=== PATIENT | male | born 1985 | race Caucasian/White ===

== ENCOUNTER 2017-03-23 08:10 | Emergency (ER) | payer BC ==
[~2017-03-23] VITALS: Ht 182.9 cm; Wt 87.6 kg
[~2017-03-23 08:10] MED LIST: NO ROUTINE MEDS
--- OUTSIDE RECORDS SUMMARY | 2017-03-23 08:14 | XMS REPORT | Continuity of Care Document ---
Author Author [facility] Organization [facility] Address Unknown Phone Unavailable Support Name Relationship Address Phone JESUSITA BUCK DO Caregiver [address] [place] [address] [place] [address] Unavailable VINCENT JOSEPH Next Of Kin [address] [place] [phone] Insurance Providers Guarantor YvetterobertoJoshua Mcdonald Address [address] [place] [address] Email DENIED/NO TO PORTAL Payer [employer] Other Policy Number [id number] Subscriber's Name Joshua Tarango Relationship 18 Self Group Number [id number] Chief Complaint and Reason for Visit Chief Complaint Weakness/Neuro Symptoms Reason for Visit Weakness Problems Past Problems Medical Problem Onset Date Weakness Unknown Medications Current Home Medications Medication Dose Units Route Directions Days Qty Instructions Start Date No Routine Meds 09/15/16 Social History Social History Problem Response Recorded Date/Time Onset Date Status Hx Substance Use No 09/15/2016 10:32am Not Applicable Not Applicable Hx Alcohol Use Y STATES FORMER DRINKER 09/15/2016 10:32am Not Applicable Not Applicable Query Response Start Date Stop Date Smoking Status Current every day smoker Hospital Discharge Instructions No hospital discharge instructions. Plan of Care Discharge Date 09/15/16 12:40pm Disposition 01 DISCHARGED HOME, SELF-CARE Condition at Discharge Improved Instructions/Education Provided DI for General Condition Prescriptions See Medication Section Referrals [facility] Note: 1-3 days, call for appointment Care Plan and Goals Physician Care Plan Problem: 1. Weakness Goal: 1. Follow up with Your Doctor in 1-2 days for follow up 2. Eat several small meals daily, to avoid similar episodes 3. Return to the ER with worsening symptoms Instructions: 1. Follow care plan as discussed/written Functional Status No functional status results. Allergies, Adverse Reactions, Alerts No known allergies. Immunizations Query Response on File Recorded Date/Time Influenza Vaccine Hx NONE 09/15/16 10:32am Tetanus Diptheria Vaccine History 200809/15/16 10:32am Vital Signs Acute Vital Signs Vital Response Date/Time Temperature (Fahrenheit) 98.1 deg F (96.8 - 99.1) 09/15/2016 10:32am Temperature (Calculated Celsius) 36.99949 degrees C (36.0 - 37.3) 09/15/2016 10:32am Pulse Rate (adult) 78 bpm (60 - 100) 09/15/2016 12:40pm Respiratory Rate 16 breaths/min (10 - 20) 09/15/2016 12:40pm O2 Sat by Pulse Oximetry 98 % (90 - 100) 09/15/2016 12:40pm Blood Pressure 129/76 mm Hg 09/15/2016 12:40pm Height (Feet) 6 feet 09/15/2016 10:32am Height (Inches) 0 inches 09/15/2016 10:32am Weight (Kilograms) 93.300 kg 09/15/2016 10:32am Body Mass Index (BMI) 27.0 09/15/2016 10:32am Results Laboratory Results Test Name Result Units Flags Reference Collection Date/Time Result Date/ Time Comments White Blood Count 6.1 T/MM3 4.5-11.0 09/15/2016 11:11a09/15/2016 11: 17am Red Blood Count 5.40 M/MM3 4.50-5.90 09/15/2016 11:11a09/15/2016 11: 17am Hemoglobin 15.6 GM/DL 13.5-17.5 09/15/2016 11:11a09/15/2016 11:17am Hematocrit 45.4 % 41-53 09/15/2016 11:11a09/15/2016 11:17am Mean Corpuscular Volume 84.1 UM3 80-100 09/15/2016 11:11am 09/15/2016 11:17am Mean Corpuscular Hemoglobin 28.9 UUG 26-34 09/15/2016 11:11am 2015 11:17am Mean Corpuscular Hemoglobin Concent 34.4 GM/DL 31-37 09/15/2016 11:11am 09/15/2016 11:17am RDW Standard Deviation 38.3 FL 36.9-50.2 09/15/2016 11:11am 09/15/2016 11:17am Platelet Count 214 T/MM3 130-400 09/15/2016 11:11am 09/15/2016 11:17am Mean Platelet Volume 9.7 UM3 9.4-12.4 09/15/2016 11:11am 09/15/2016 11: 17am Neutrophils (%) (Auto) 53.4 % 33-66 09/15/2016 11:m 09/15/2016 11: 17am Lymphocytes (%) (Auto) 33.2 % 23-45 09/15/2016 11:m 09/15/2016 11: 17am Monocytes (%) (Auto) 6.2 % 0-9.0 09/15/2016 11:11am 09/15/2016 11:17am Eosinophils (%) (Auto) 6.2 % H 0-4 09/15/2016 11:m 09/15/2016 11: 17am Basophils (%) (Auto) 0.8 % 0-2 09/15/2016 11:m 09/15/2016 11:17am Immature Granulocyte % (Auto) 0.2 % 0.0-0.5 09/15/2016 11:11am 2015 11:17am Absolute Neutrophils (auto) 3.3 T/MM3 1.8-7.7 09/15/2016 11:11am 2015 11:17am Absolute Lymphocytes (auto) 2.0 T/MM3 1-4.8 09/15/2016 11:11am 2015 11:17am Absolute Monocytes (auto) 0.4 T/MM3 0-0.8 09/15/2016 11:11am 2015 11:17am Absolute Eosinophils (auto) 0.4 T/MM3 0-0.5 09/15/2016 11:11am 2015 11:17am Absolute Basophils (auto) 0.1 T/MM3 0-0.2 09/15/2016 11:11am 2015 11:17am Absolute Immature Granulocyte (auto 0.01 T/MM3 0.00-0.03 09/15/2016 11: 11am 09/15/2016 11:17am Icterus Index < 2 0-7 09/15/2016 11:m 09/15/2016 11:28am Chemistry Specimen Hemolysis 68 H 0-25 09/15/2016 11:11am 09/15/2016 11:28am 26-70: Specimen Exhibited Slight Hemolysis - can falsely elevate K (Potassium) and Urine Protein. Turbidity 23 H 0-20 09/15/2016 11:11am 09/15/2016 11:28am 0-21: Turbidity not present. 22-999: Turbidity present - Gross turbidity can falsely decrease Lipase and Triglycerides. Sodium Level 146 MEQ/L H 134-144 09/15/2016 11:11am 09/15/2016 11:28am Potassium Level 3.9 MEQ/L 3.6-5 09/15/2016 11:11am 09/15/2016 11:28am Chloride Level 106 MEQ/L 98-107 09/15/2016 11:11am 09/15/2016 11:28am Carbon Dioxide Level 25 MEQ/L 22-30 09/15/2016 11:11am 09/15/2016 11: 28am Anion Gap 15 MEQ/L 5-15 09/15/2016 11:11am 09/15/2016 11:28am Blood Urea Nitrogen 12.0 MG/DL 9-20 09/15/2016 11:11am 09/15/2016 11: 28am Creatinine 0.8 MG/DL 0.8-1.5 09/15/2016 11:11am 09/15/2016 11:28am BUN/Creatinine Ratio 15 RATIO 6-26 09/15/2016 11:11am 09/15/2016 11: 28am Glomerular Filtration Rate Calc 114 09/15/2016 11:11am 09/15/2016 11:28am Glucose Level 112 MG/DL H 75-110 09/15/2016 11:11am 09/15/2016 11:28am Calculated Osmolality 282 MOSM/KG H 261-280 09/15/2016 11:11am 2015 11:28am Calcium Level 9.4 MG/DL 8.4-10.2 09/15/2016 11:11am 09/15/2016 11:28am Total Bilirubin 0.50 MG/DL 0.20-1.30 09/15/2016 11:11am 09/15/2016 11: 28am Alkaline Phosphatase 57 U/L 38-126 09/15/2016 11:11am 09/15/2016 11: 28am Total Protein 7.1 G/DL 6.3-8.2 09/15/2016 11:11am 09/15/2016 11:28am Albumin 4.1 G/DL 3.5-5.0 09/15/2016 11:11am 09/15/2016 11:28am Globulin 3.0 G/DL 2.4-3.6 09/15/2016 11:11am 09/15/2016 11:28am Albumin/Globulin Ratio 1.4 RATIO 1.1-2.2 09/15/2016 11:11am 09/15/2016 11:28am Aspartate Amino Transf (AST/SGOT) 27 U/L 17-59 09/15/2016 11:11am 09/15 11:28am Alanine Aminotransferase (ALT/SGPT) 27 U/L 21-72 09/15/2016 11:11am 11/2015 11:28am Troponin I < 0.012 ng/ml 0-0.12 09/15/2016 11:11am 09/15/2016 11:39am Troponin values with a difference of 55% increase from orginal troponin value represent a true biological DELTA value. (%increase Calc=Orginal Troponin value, divided by subsequent Troponin value, multiplied by 100) Urine Collection Type CLEANCATCH-MIDSTREAM 09/15/2016 11:45am 09/15 12:02pm Urine Color YELLOW YELLOW 09/15/2016 11:45am 09/15/2016 12:02pm Urine Turbidity CLEAR CLEAR 09/15/2016 11:45am 09/15/2016 12:02pm Urine Specific [place] 1.025 1.015-1.025 09/15/2016 11:45am 2015 12:02pm Urine pH 6.0 5.0-8.0 09/15/2016 11:45am 09/15/2016 12:02pm Urine Leukocyte Esterase NEGATIVE NEGATIVE 09/15/2016 11:45am 2015 12:02pm Urine Nitrite NEGATIVE NEGATIVE 09/15/2016 11:45am 09/15/2016 12: 02pm Urine Protein NEGATIVE NEGATIVE 09/15/2016 11:45am 09/15/2016 12: 02pm Urine Glucose (UA) NEGATIVE NEGATIVE 09/15/2016 11:45am 09/15/2016 12 :02pm Urine Ketones NEGATIVE NEGATIVE 09/15/2016 11:45am 09/15/2016 12: 02pm Urine Urobilinogen 0.2 EU/DL NORMAL 09/15/2016 11:45am 09/15/2016 12: 02pm Urine Bilirubin NEGATIVE NEGATIVE 09/15/2016 11:45am 09/15/2016 12: 02pm Urine Blood NEGATIVE NEGATIVE 09/15/2016 11:45am 09/15/2016 12:02pm Urinalysis Comment MICROSCOPIC NOT IND. 09/15/2016 11:45am 2015 12:02pm Name: JOSHUA TARANGO Unit #: [id number] : 1985 Sex: M Admit Date: Loc / Svc: ED Discharge Date: DIAGNOSTIC IMAGING REPORT Report #: [id number] [facility] [place] Indication: ITS.REASON: altered mental status blurry vision starting yesterday PROCEDURE: CT HEAD W/O CONTRAST: Encounter: Initial Comparison: None Technique: Axial CT images through the head were performed without contrast. FINDINGS: The ventricles are of normal size, shape, and configuration for the patient's age. There is no evidence of acute intracranial hemorrhage, midline displacement, or mass effect. The CT attenuation of the brain parenchyma is normal within the cerebellum, brain stem, and cerebral hemispheres. The tympanic cavities and mastoid air cells are free of appreciable disease. There are no definite fractures of the skull base, calvarium, or visualized portion of the midface. IMPRESSION: No CT evidence of acute intracranial abnormality. . Procedures No known history of procedures. Encounters Encounter Location Arrival/Admit Date Discharge/Depart Date Attending Provider Departed Emergency Room [facility] 09/15/16 10:26am 09/15/16 12: 40pm JESUSITA BUCK DO Recent Diagnosis
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
[2017-03-23 08:15] VITALS: Ht 182.9 cm; Wt 87.6 kg
[2017-03-23] MEDS ORDERED: NORMAL SALINE 1,000 ML IV ONE (08:25)
--- NOTE | 2017-03-23 08:32 | ERPDOC ---
Departure Disposition Decision Date: March 23, 2017 Disposition Decision Time: 11:10 Disposition: 01 DISCHARGED HOME, SELF-CARE Impression Impression Impression: Primary Impression: Abdominal pain Abdominal location: left lower quadrant Qualified Codes: R10.32 - Left lower quadrant pain Severity: Mild Condition: Improved Seen By: Physician only Referrals: ANA WALL MD Call for appointment Patient Instructions: Acute Abdominal Pain (ED) Problems/Meds/Labs Reviewed?: Yes Medications reviewed and manag: Yes Additional Instructions: 1. Motrin or Tylenol for pain 2. Follow with a local Physician Departure Forms: Return to Work/School Permit Return to Work/School Date: March 24, 2017 Follow up care ordered?: Yes Mental Status: Alert, Oriented Scripts Ibuprofen (Ibuprofen) 800 Mg Tablet 1 TAB PO Q8H Y for PAIN, #20 TAB 0 Refills Prov: JESUSITA BUCK 03/23/17 HPI - Abdominal Pain General Chief Complaint: Abdominal Pain Stated Complaint: SHARP ABD PAIN Time Seen by Provider: 08:17 Source: patient (Patient presents to the ER with a 2 year complaint of intermittant LLQ abdominal pain, that radiates into his back. Patient states he was diagnosed with Diverticulitis in the past. ) History/Exam Limitations: no limitations HPI - Abdominal Pain Occurred At: home Onset: Changing over time Duration: 1-3 hrs Pain Scale: Now: 7/10, Worst: 10/10 Quality: sharpness Location: LLQ Radiation: back Activities at Onset: activity Modifying Factors: IMPROVES WITH: defecating, WORSE WITH: palpation Associated Symptoms: back pain, nausea/vomiting, DENIES: chest pain, diaphoresis, fatigue, fever/chills, headache, heartburn, rash, shortness of breath, swelling/mass in abdomen, syncope, weakness Hx of Similar Symptoms: Yes Allergies: Coded Allergies: No Known Allergies (Unverified , 03/23/17) Past History Past Medical History Pt denies signifigant PMH Hx Echocardiogram: No Surgical History Denies Surgeries Family History Family History: Negative Social History Smoking Status: Unknown if ever smoked Does patient use chewing tobac: No Second Hand Exposure: No Substance Use Type: does not use Alcohol Intake: none Marital Status: Single Sexuality: female partner Housing: house Household Members: significant other Service: No Current Occupational Status: employed Occupational Hazard: No Advance Directives: Yes Full Code Record Review Pertinent history updated: Yes Review of Systems Constitutional Constitutional: DENIES: chills, fever Eyes Lids/Accessories: DENIES: erythema, swelling ENMT Ears: DENIES: erythema, pain Balance: DENIES: ataxia, vertigo Sinuses: DENIES: congestion, rhinorrhea Mouth/Throat: DENIES: sore throat Cardiovascular Cardiac: DENIES: chest pain, dyspnea on exertion, orthopnea Rhythm/Rate: DENIES: tachycardia Pulmonary Respiratory: DENIES: cough, dyspnea, sputum GI Upper Abdomen: DENIES: nausea, pain, vomiting Lower Abdomen: pain (LLQ), DENIES: constipation, diarrhea General: DENIES: dysuria Musculoskeletal General: DENIES: cramps, pain, weakness Integumentary Skin: DENIES: color change, itching, rash Neurological General: DENIES: ataxia, change in strength, headache, numbness, poor coordination, seizures, syncope, vertigo, weakness Psychiatric Psychiatric: DENIES: anxiety, depression, nervousness Hematologic/Lymphatic Hematologic/Lymphatic: DENIES: anemia Allergic/Immunological Allergic/Immunoligical: DENIES: sneezing All other Systems All Other Systems: Reviewed and Negative Physical Exam General General Nourishment: well nourished, well developed, appears stated age, no acute distress, adult General Body Habitus: well groomed Vitals and Pain First Documented Vital Signs Date Time Temp Pulse Resp B/P Pulse Ox O2 Delivery O2 Flow Rate FiO2 03/23/17 08:15 97.8 64 14 157/99 98 Room Air Weight: Kilograms: Height (feet): 6 Height (inches): 0 Triage Pain Scale: RN VS reviewed by Provider: Yes Eyes (brief) Eyes Brief: found: EOMI, PERRL ENMT (brief) ENMT Brief: FOUND: TM clear, TM good light reflex, mucosa moist, NOT FOUND: pharnyx erythema Neck (brief) Neck: FOUND: trachea midline, NOT FOUND: adenopathy, tenderness, tracheal deviation Respiratory (brief) Respiratory: FOUND: clear all deshpande, equal bilaterally Cardiovascular (brief) Cardiac: FOUND: regular rate, regular rhythm Capillary Refill: <2 sec Pulses: all distal extremities, equal, strong Abdomen Palpation: FOUND: soft, tender (Reports Pain with palpation of LLQ ), NOT FOUND : McBurney's point tender, Alcazar's sign, Obturator sign, Psoas sign, Rosving's sign, hepatomegaly, hernia, involuntary guarding, pulsating mass, rebound, splenomegaly, voluntary guarding Auscultation: FOUND: normoactive Lymphatic (brief) Lymphatic Brief: NOT FOUND: adenopathy Musculoskeletal (brief) Musculoskeletal Brief: NOT FOUND: spasm, tenderness Integumentary (brief) Integumentary Brief: FOUND: pink, warm Neurologic (brief) Neurological Brief: FOUND: CN w/o gross def to obs, gait w/o gross def to obs, motor-no gross deficits, sensory-no gross deficits, NOT FOUND: ataxia Psychiatric (brief) Psychiatric Brief: FOUND: alert, attentive, normal affect, oriented Differential Diagnoses Considering: Appendicitis, Constipation, Crohn's, Diverticulitis, Gastroenteritis, GI Bleed, Hernia, IBS, Ileus, Neoplasm, Pancreatitis, Pyelonephritis, Renal Colic, Ulcerative Colitis, UTI, Volvulus, Other Progress Results/Orders Orders Procedure Category Date Status Time Iv Lock (Ed Only) EDM 03/23/17 Transmitted 08:25 Nothing By Mouth (Ed EDM 03/23/17 Transmitted Only) 08:25 Cbc W/Auto LAB 03/23/17 Complete Diff-Reflex Manual 08:25 Cmp - Comprehensive LAB 03/23/17 Complete Metabolic 08:25 Lipase LAB 03/23/17 Complete 08:25 Normal Saline (Normal PHA 03/23/17 Complete Saline Iv) 08:25 UA, LAB 03/23/17 Complete Dip&Micro(Complete) & 08:39 Ct Abd/Pelvis CT 03/23/17 Resulted W/Contrast Only Ketorolac (Toradol) PHA 03/23/17 Complete 09:30 Iohexol (Omnipaque) PHA 03/23/17 Complete 09:34 Normal Saline (Ns) PHA 03/23/17 Complete 09:34 Saline Flush (Iv PHA 03/23/17 Complete Flush) 09:34 Lab Results Laboratory Tests Test 03/23/17 08:39 03/23/17 08:51 Urine Collection Type Cleancatch-midstream Urine Color Yellow Urine Turbidity Clear Urine pH 5.5 Urine Specific [place] 1.020 Urine Protein Negative Urine Glucose (UA) Negative Urine Ketones Negative Urine Blood Negative Urine Nitrite Negative Urine Bilirubin Negative Urine Urobilinogen 0.2EU/DL Urine Leukocyte Esterase 1+ Urine RBC 0-1/HPF Urine WBC 1-3/HPF Urine Squamous Epithelial Cells 0-5 Urine Bacteria 2+ Urine Culture Indicated Cult not indicated White Blood Count 6.5T/MM3 Red Blood Count 5.25M/MM3 Hemoglobin 15.4GM/DL Hematocrit 45.7% Mean Corpuscular Volume 87.0UM3 Mean Corpuscular Hemoglobin 29.3UUG Mean Corpuscular Hemoglobin Concent 33.7GM/DL RDW Standard Deviation 39.8FL Platelet Count 206T/MM3 Mean Platelet Volume 9.5UM3 Immature Granulocyte % (Auto) 0.2% Neutrophils (%) (Auto) 58.5% Lymphocytes (%) (Auto) 28.3% Monocytes (%) (Auto) 8.1% Eosinophils (%) (Auto) 4.1% Basophils (%) (Auto) 0.8% Absolute Immature Granulocyte (auto 0.01T/MM3 Absolute Neutrophils (auto) 3.8T/MM3 Absolute Lymphocytes (auto) 1.9T/MM3 Absolute Monocytes (auto) 0.5T/MM3 Absolute Eosinophils (auto) 0.3T/MM3 Absolute Basophils (auto) 0.1T/MM3 Turbidity < 20 Sodium Level 143MEQ/L Potassium Level 4.4MEQ/L Chloride Level 106MEQ/L Carbon Dioxide Level 26MEQ/L Anion Gap 11MEQ/L Blood Urea Nitrogen 15.0MG/DL Creatinine 0.9MG/DL Glomerular Filtration Rate Calc 98 BUN/Creatinine Ratio 17RATIO Glucose Level 97MG/DL Calculated Osmolality 276MOSM/KG Calcium Level 9.4MG/DL Total Bilirubin 0.70MG/DL Icterus Index < 2 Aspartate Amino Transf (AST/SGOT) 19U/L Alanine Aminotransferase (ALT/SGPT) 38U/L Alkaline Phosphatase 54U/L Total Protein 6.9G/DL Albumin 4.4G/DL Globulin 2.5G/DL Albumin/Globulin Ratio 1.8RATIO Lipase 206U/L Chemistry Specimen Hemolysis < 15 Medications Current ED Medications Sodium Chloride (Normal Saline IV) 1,000 ml @ 0 mls/hr Q0M ONCE IV Last administered on 03/23/17 09:11; Start 03/23/17 at 08:25; Stop 03/23/17 at 08:27; Status DC Ketorolac Tromethamine (Toradol) 30 mg O ONCE IV Last administered on 11:08; Start 03/23/17 at 09:30; Stop 03/23/17 at 09:31; Status DC Iohexol 1 bottle 1 bottle STK-MED ONCE .ROUTE ; Start 03/23/17 at 09:34; Stop 03/23/17 at 09:35; Status DC Sodium Chloride (NS) 100 ml @ As Directed STK-MED ONCE .ROUTE ; Start 03/23/17 at 09:34; Stop 03/23/17 at 09:35; Status DC Sodium Chloride (Iv Flush) 10 ml STK-MED ONCE .ROUTE ; Start 03/23/17 at 09:34; Stop 03/23/17 at 09:35; Status DC Progress Progress Patient is feeling better following Medications CT CT : Reason for Exam: abdominal pain CT: Abd/Pelvis IV contrast Interpretation: Normal, Reviewed Written Report JESUSITA BUCK DO March 23, 2017 08:32
--- OUTSIDE RECORDS SUMMARY | 2017-03-23 08:55 | XMS REPORT | Continuity of Care Document ---
Author Author [facility] Organization [facility] Address Unknown Phone Unavailable Allergies Active Description [...] NKMA N/A N/A 11/10/2014 Yes Bee Stings 36124 N/A N/A 07/20/2015 Medications Problems Date Dx [...] Status Pt. Type Provider Facility Loc./Unit Complaint [id number] 11/18/2013 01:45:00 2013 23:59:59 CLS Emergency Vicente Venegas DO [facility] on [address] [place] [id number] 04/26/2013 05:19:00 2012 06:29:00 DIS Emergency Pablo Jones MD [facility] on [address] [place] [id number] 12/30/2012 13:23:00 2012 16:30:00 DIS Emergency César Coles MD [facility] on [address] [facility] [id number] 09/12/2012 02:23:00 2011 03:30:00 DIS Emergency Andi GIMENEZ, Vicente Saez [facility] on [address] [id number] 12/11/2012 03:49:00 Document Registration
[2017-03-23 08:56] LABS: BLOOD, URINE NEGATIVE (NEGATIVE); COLOR,URINE YELLOW (YELLOW); LEUKOCYTE ESTERASE ,URINE 1+ (NEGATIVE); NITRITE,URINE NEGATIVE (NEGATIVE); UROBILINOGEN,URINE 0.2 EU/DL (NORMAL)
[2017-03-23 08:58] LABS: BASOPHILS # (AUTO) 0.1 T/MM3 (0-0.2); BASOPHILS % (AUTO) 0.8 % (0-2); EOSINOPHILS # (AUTO) 0.3 T/MM3 (0-0.5); EOSINOPHILS % (AUTO) 4.1 % (0-4); HCT - HEMATOCRIT 45.7 % (41-53); HGB - HEMOGLOBIN 15.4 GM/DL (13.5-17.5); IMMATURE GRANULOCYTE # (AUTO) 0.01 T/MM3 (0.00-0.03); IMMATURE GRANULOCYTE % (AUTO) 0.2 % (0.0-0.5); LYMPHOCYTES # (AUTO) 1.9 T/MM3 (1-4.8); LYMPHOCYTES % (AUTO) 28.3 % (23-45); MEAN CORPUSCULAR HGB 29.3 UUG (26-34); MEAN CORPUSCULAR HGB CONC(MCHC 33.7 GM/DL (31-37); MEAN PLATELET VOLUME 9.5 UM3 (9.4-12.4); MONOCYTES # (AUTO) 0.5 T/MM3 (0-0.8); MONOCYTES % (AUTO) 8.1 % (0-9.0); NEUTROPHILS #(AUTO)-ABSOLUTE 3.8 T/MM3 (1.8-7.7); NEUTROPHILS % (AUTO) 58.5 % (33-66); RED BLOOD COUNT 5.25 M/MM3 (4.50-5.90); WBC - WHITE BLOOD COUNT 6.5 T/MM3 (4.5-11.0)
[2017-03-23 09:09] LABS: BACTERIA,URINE 2+ (NEGATIVE); RBC,URINE 0-1 /HPF (0-3); SQUAMOUS EPITHELIAL CELL,UR 0-5
[2017-03-23 09:10] LABS: ALBUMIN 4.4 G/DL (3.5-5.0); ALBUMIN/GLOBULIN RATIO 1.8 RATIO (1.1-2.2); ALKALINE PHOSPHATASE 54 U/L (38-126); ALT (SGPT) 38 U/L (21-72); ANION GAP 11 MEQ/L (5-15); AST (SGOT) 19 U/L (17-59); BUN/CREATININE RATIO 17 RATIO (6-26); CALCIUM 9.4 MG/DL (8.4-10.2); CHLORIDE 106 MEQ/L (98-107); CO2 - CARBON DIOXIDE 26 MEQ/L (22-30); CREATININE 0.9 MG/DL (0.8-1.5); GLOMERULAR FILTRATION RATE 98; GLUCOSE 97 MG/DL (75-110); LIPASE 206 U/L (23-300); POTASSIUM 4.4 MEQ/L (3.6-5); SODIUM 143 MEQ/L (134-144); TOTAL PROTEIN 6.9 G/DL (6.3-8.2)
[2017-03-23] MEDS ORDERED: KETOROLAC 30mg/ml INJECTION IV ONE (09:30)
[2017-03-23] MEDS ORDERED: SALINE FLUSH 10ml SYRINGE ONE (09:34)
[2017-03-23] MEDS ORDERED: IOHEXOL 300 MG/ML 75ml INJECTION ONE (09:34)
[2017-03-23] MEDS ORDERED: NORMAL SALINE 100 ML ONE (09:34)
--- NOTE | 2017-03-23 09:55 | NUR ---
XRAY PT TO XRAY
--- NOTE | 2017-03-23 10:01 | NUR ---
Cuate miller in [facility] - 03/23/17 at 1054 by FRANCK PT STATUS PT SITTING UPRIGHT IN BED, CALL LIGHT IN REACH, SHOWS NO SIGNS OF DISTRESS.
--- NOTE | 2017-03-23 10:10 | NUR ---
XRAY PT RETURNED FROM XRAY
--- NOTE | 2017-03-23 10:11 | NUR ---
PT STATUS PT SITTING UPRIGHT IN BED, CALL LIGHT IN REACH, SHOWS NO SIGNS OF DISTRESS.
--- NOTE | 2017-03-23 10:36 | DI ---
EXAM: CT abdomen and pelvis with contrast. LOCATION OF DICTATION: [place] HISTORY: ITS.REASON: LLQ abdominal pain COMPARISON: No prior studies are available for comparison TECHNIQUE: CT images were obtained of the abdomen and pelvis utilizing 100 mL of Omnipaque 240. Coronal and sagittal reformations were utilized. Automated Exposure Control and Iterative Reconstruction dose reducing techniques were utilized. FINDINGS: CT ABDOMEN LUNG BASES: Unremarkable LIVER: The liver is mildly enlarged measuring 18.4 cm craniocaudally. SPLEEN: The spleen is mildly enlarged measuring 14.4 cm craniocaudally. GALLBLADDER: Unremarkable. PANCREAS: Unremarkable. ADRENAL GLANDS: Unremarkable. KIDNEYS: Unremarkable. AORTA: Unremarkable. LYMPH NODES: Unremarkable. STOMACH BOWEL LOOPS: Mild diverticulosis of the sigmoid colon. No evidence for diverticulitis. The appendix is normal. PERITONEAL CAVITY: There is no abdominal or pelvic inflammatory mass or ascites. CT PELVIS URINARY BLADDER: Unremarkable. PROSTATE: Unremarkable. OSSEOUS STRUCTURES: Unremarkable. IMPRESSION: 1. No inflammatory mass, lymphadenopathy, or ascites. The appendix is normal. Mild diverticulosis without diverticulitis. 2. Mild hepatosplenomegaly. .
[2017-03-23] MEDS ORDERED: IBUP-1547 PO (11:20)
[2017-03-23 11:28] VITALS: BP 136/76; PULSE 66; RESP 16; TEMP 97.2; O2SAT 97
== END 2017-03-23 11:28 | disposition home or self-care (01) ==
LOC: ED 08:10
DX: R10.32 Left lower quadrant pain (principal); M54.9 Dorsalgia, unspecified
CPT/HCPCS: 74177; 80053; 81001; 83690; 85025; 96361; 96374; 99284; J1885; J7030; J7050; Q9967